=== PATIENT | female | born 1990 | race Caucasian/White ===

== ENCOUNTER 2016-11-23 19:35 | Emergency (ER) | payer OTHER ==
[2016-11-23 19:39] VITALS: BP 108/72; PULSE 82; RESP 16; TEMP 97.5; O2SAT 98
[2016-11-23] MEDS ORDERED: TDAP ADULT 0.5 ML INJ (BOOSTRIX) IM ONE (20:18)
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
== END 2016-11-23 21:41 | disposition home or self-care (01) ==
PROC: 0HQ1XZZ Repair Face Skin, External Approach (ICD-10-PCS; principal; 2016-11-23)
DX: S01.81XA Laceration without foreign body of other part of head, initial encounter (principal); S60.415A Abrasion of left ring finger, initial encounter; S60.417A Abrasion of left little finger, initial encounter; Z87.891 Personal history of nicotine dependence; Z23 Encounter for immunization; V18.4XXA Pedal cycle driver injured in noncollision transport accident in traffic accident, initial encounter; Y92.410 Unspecified street and highway as the place of occurrence of the external cause; Y99.8 Other external cause status; Y93.89 Activity, other specified